=== PATIENT | male | born 1985 | race Caucasian/White ===

== ENCOUNTER → 2016-08-01 | Outpatient (CLI) | payer BC ==
--- NOTE | 2016-08-01 12:47 | DI ---
XR KNEE CMPT 4 OR MORE VWS,08/01/2016 9:19 AM: Clinical History: Right knee pain Previous Exam: None at this facility. Findings: 4 views of the right knee are obtained, and demonstrate postsurgical changes consistent with lag scre w fixation of the distal right metadiaphysis. Joint spaces are clear. The surrounding soft tissues are unremarkable. Impression: Postsurgical changes of the right knee consistent with lag screw fixation.
== END ==
LOC: ORTHO 09:52
PROVIDERS: ATTEND Physician Assistant
DX: M25.561 Pain in right knee (principal)
CPT/HCPCS: 73564

== ENCOUNTER → 2016-08-07 | Outpatient (CLI) | payer BC ==
--- NOTE | 2016-08-07 10:15 | DI ---
MRI RIGHT KNEE SCAN, 08/07/2016 9:17 AM: Clinical History: Right knee pain. Previous Exam: None at this facility. Technique: Axial, coronal, and sagittal PD and fat saturated PD. There is no soft tissue edema. There is no significant joint effusion. Extensive metallic artifacts a re present from stainless steel threaded screws that are in the femoral condyles. There is a subchond ral cyst in the lateral facet of the patella and this is associated with a grade 2 probably a grade 3 focus of chondromalacia of the lateral facet. The medial and lateral collateral ligaments and the an terior and posterior cruciate ligaments are normal. There is a longitudinal tear in the meniscal root of the posterior horn of the medial meniscus. Marked degenerative changes present in the body of the medial meniscus without evidence of a definite tear. The lateral meniscus is normal. The quadriceps and popliteus tendons and the tendons of the medial and lateral heads of the gastrocnemius muscle are normal. There is tendinosis of the proximal portion of the patellar tendon. The articular surfaces o f the medial and lateral compartments are normal. The articular surface of the medial facet of the pa tella is intact. Readin. Extensive scan artifacts are present from the stainless steel threaded screws in the distal femur . 2. There is a longitudinal tear of the meniscal root of the posterior horn of the medial meniscus. A grade 2 and probably a grade 3 focus of chondromalacia is present in the lateral facet of the patell a and this is associated with a subchondral cyst. The medial facet of the patella is normal. There is tendinosis of the proximal portion of the patellar tendon. 3. The MCL, LCL, ACL, PCL, lateral meniscus, and the quadriceps and popliteus tendons in the tendons of the medial and lateral heads of the gastrocnemius muscle are normal. The articular surfaces of th e medial and lateral compartments are intact.
== END ==
LOC: MRI 09:13
PROVIDERS: ATTEND Physician Assistant
DX: M25.561 Pain in right knee (principal); S83.241A Other tear of medial meniscus, current injury, right knee, initial encounter; M22.41 Chondromalacia patellae, right knee
CPT/HCPCS: 73721

== ENCOUNTER 2016-11-12 19:19 | Inpatient (IN) ==
[2016-11-12] MEDS ORDERED: Sodium Chloride 0.9% 1,000 ML PRIMARY IV ONE (19:39)
[2016-11-12] MEDS ORDERED: NORMAL SALINE 10 ML SYRINGE FLUSH IVP PRN ×2 (19:39→23:46)
[2016-11-12 19:46] LABS: BASOPHILS # (AUTO) 0.01 10*3/UL; BASOPHILS % (AUTO) 0.1 % (0-1); EOSINOPHILS # (AUTO) 0.01 10*3/UL; EOSINOPHILS % (AUTO) 0.1 % (0-8); Hematocrit [HCT] 42.8 % (42.0-52.0); Hemoglobin [HGB] 14.8 g/dL (14.0-18.0); MEAN CORPUSCULAR HEMOGLOBIN 28.4 PG (27-31); MEAN CORPUSCULAR HGB CONC 34.6 g/dL (33-37); MEAN PLATELET VOLUME 9.4 FL (7.4-12.2); MONOCYTES % (AUTO) 7.2 % (5-15); NEUTROPHILS % (AUTO) 85.2 % (50-80); RED BLOOD COUNT 5.22 10^6/uL (4.70-6.10)
--- NOTE | 2016-11-12 19:54 | EKG ---
[address] [address] Measurements Intervals [place] Rate: 73 P: 57 WA: 180 QRS: 72 QRSD: 110 T: 69 QT: 369 QTc: 395 Interpretive Statements SINUS RHYTHM INTERPRETATION BASED ON A DEFAULT AGE OF 40 YEARS No previous ECG available for comparison Electronically Signed On 11-13-16 09:14:10 MDT by Goran Nichole MD [email or web address]
[2016-11-12 19:56] LABS: BLOOD UREA NITROGEN 26 mg/dL (7-22); SERUM ALBUMIN 4.6 g/dL (3.5-4.8)
[2016-11-12 19:58] LABS: PLATELET MORPHOLOGY COMMENT NORMAL MORPHOLOGY (NORM); RBC MORPHOLOGY COMMENT NORMAL MORPHOLOGY (NORM); WBC MORPHOLOGY COMMENT NORMAL MORPHOLOGY (NORM)
--- NOTE | 2016-11-12 21:33 | DI ---
EXAM: CT Chest With Intravenous Contrast CLINICAL HISTORY: Trauma: TECHNIQUE: Axial computed tomography images of the chest with intravenous contrast. Coronal and sagittal reformats were obtained. COMPARISON: No relevant prior studies available. FINDINGS: Lungs: Mild atelectasis in the posterior left lower lobe. No consolidation. Pleural space: Moderate-sized left pneumothorax. No mediastinal shift. Heart: Unremarkable. No cardiomegaly. No significant pericardial effusion. Bones/joints: Segmented posterior left 8th through 12th rib fractures, some of which are mildly displaced. Soft tissues: Subcutaneous emphysema in the left chest wall. Bilateral gynecomastia. Vasculature: Unremarkable. No thoracic aortic aneurysm or dissection. Lymph nodes: Unremarkable. No enlarged lymph nodes. IMPRESSION: 1. Moderate-sized left pneumothorax. No mediastinal shift. 2. Segmented posterior left 8th through 12th rib fractures, some mildly displaced. 3. Please see CT abdomen and pelvis for findings below the diaphragm. [employer] 11/12/16 21:35 Call Doctor Regarding Trauma, called Dr. Aubrey Camejo on 11/12 21:34 (-06:00) 11/12/16 21:35 Call Doctor Regarding Pneumothorax, called Dr. Aubrey Camejo on 11/12 21:34 (-06:00)
--- NOTE | 2016-11-12 21:33 | DI ---
EXAM: CT Abdomen and Pelvis With Intravenous Contrast CLINICAL HISTORY: trauma: TECHNIQUE: Axial computed tomography images of the abdomen and pelvis with intravenous contrast. Coronal and sagittal reformats were obtained. COMPARISON: No relevant prior studies available. FINDINGS: Lower thorax: Please see CT chest for findings above the diaphragm. Left-sided rib fractures as described in CT chest. ABDOMEN: Liver: Small amount of perihepatic hematoma, which may represent redistribution of blood products from splenic injury. No gross hepatic parenchymal injury. Gallbladder and bile ducts: Unremarkable. No calcified stones. No ductal dilation. Pancreas: Unremarkable. No mass. No ductal dilation. Spleen: Approximately 6 cm vertically oriented laceration in the posterior aspect of the spleen (5/35). Moderate sized perisplenic hematoma. Findings compatible with A AST grade 3 splenic injury. No definite active contrast extravasation. Adrenals: Unremarkable. No mass. Kidneys and ureters: Unremarkable. No solid mass. No hydronephrosis. Stomach and bowel: Status post sleeve gastrectomy. No obstruction. Appendix: No findings to suggest acute appendicitis. PELVIS: Bladder: Unremarkable. Reproductive: Unremarkable as visualized. ABDOMEN and PELVIS: Intraperitoneal space: Small amount of hemoperitoneum in the left paracolic gutter and moderate amount in the pelvis. No free air. Bones/joints: No spinal, pelvic, or proximal femoral fracture. Soft tissues: Left flank subcutaneous contusion. Moderate amount of subcutaneous edema emphysema in the left flank, likely related to a left pneumothorax. Vasculature: Unremarkable. No abdominal aortic aneurysm. Lymph nodes: Unremarkable. No enlarged lymph nodes. IMPRESSION: 1. 6 cm splenic laceration and moderate sized perisplenic hematoma (AAST grade 3 splenic injury). No definite active contrast extravasation. 2. Small perihepatic hematoma, which may represent redistribution of blood products from splenic injury. No gross hepatic injury. 3. Moderate hemoperitoneum along the left paracolic gutter and pelvis. 4. Left flank subcutaneous contusion. [employer] 11/12/16 21:35 Call Doctor Regarding Trauma, called Dr. Aubrey Camejo on 11/12 21:34 (-06:00)
[2016-11-12] MEDS ORDERED: MIDAZOLAM 5 MG/1 ML IVP ONE (22:03)
[2016-11-12] MEDS ORDERED: fentaNYL Inj 100 MCG/2 ML VIAL IVP ONE (22:03)
[2016-11-12] MEDS ORDERED: ONDANSETRON 4 MG/2 ML VIAL IVP ONE (22:03)
[2016-11-12 22:35] LABS: LIPASE 217 IU/L (23-300)
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
[2016-11-12] MEDS ORDERED: PNEUMOCOCCAL 23 VACCINE 25 MCG/0.5 ML VIAL IM ONE (23:46)
[2016-11-12] MEDS ORDERED: ONDANSETRON 4 MG/2 ML VIAL IVP PRN (23:46)
[2016-11-12] MEDS ORDERED: LIDOCAINE W/ SODIUM BICARB 0.5 ML SYR SUBD PRN (23:46)
[2016-11-12] MEDS ORDERED: HYDROmorphone 2 MG/1 ML IVP PRN (23:46)
[2016-11-12] MEDS ORDERED: Lidocaine Inj 1% 20 ML ONE ×2 (23:52→23:55)
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
[2016-11-13 00:17] LABS: Hematocrit [HCT] 37.4 % (42.0-52.0); Hemoglobin [HGB] 12.7 g/dL (14.0-18.0)
[2016-11-13] MEDS: Ertapenem Inj 1 GM in Sodium Chloride 0.9% 100 ML IV SCH (00:41)
[2016-11-13] MEDS: Sodium Chloride 0.9% 1,000 ML PRIMARY IV SCH ×3 (00:41→17:00)
[2016-11-13] MEDS ORDERED: fentaNYL Inj 100 MCG/2 ML VIAL IVP ONE (02:11)
[2016-11-13 05:39] LABS: BASOPHILS # (AUTO) 0.02 10*3/UL; BASOPHILS % (AUTO) 0.3 % (0-1); EOSINOPHILS # (AUTO) 0.06 10*3/UL; EOSINOPHILS % (AUTO) 0.8 % (0-8); Hematocrit [HCT] 35.5 % (42.0-52.0); Hemoglobin [HGB] 11.9 g/dL (14.0-18.0); LYMPHOCYTES # (AUTO) 1.78 10*3/uL; MEAN CORPUSCULAR HGB CONC 33.5 g/dL (33-37); MEAN CORPUSCULAR VOLUME 83.5 FL (80-90); MEAN PLATELET VOLUME 9.7 FL (7.4-12.2); MONOCYTES # (AUTO) 0.81 10*3/UL (0.3-0.8); MONOCYTES % (AUTO) 11.4 % (5-15); NEUTROPHILS # (AUTO) 4.45 10*3/UL; NEUTROPHILS % (AUTO) 62.4 % (50-80); RED BLOOD COUNT 4.25 10^6/uL (4.70-6.10)
[2016-11-13 05:44] LABS: BILIRUBIN,URINE NEGATIVE (NEG); CLARITY,URINE CLEAR (CLEAR); COLOR,URINE YELLOW (Y); GLUCOSE, URINE (UA) NEGATIVE (NEG); NITRATE,URINE NEGATIVE (NEG); OCCULT BLOOD,URINE NEGATIVE (NEG); PH,URINE 5.5 (5.0-8.5); PROTEIN,URINE NEGATIVE (NEG); UROBILINOGEN,URINE 0.2 EU/dL (0.2)
[2016-11-13 05:47] LABS: URINE SAMPLE TYPE CLEAN CATCH URINE
[2016-11-13 05:52] LABS: PLATELET MORPHOLOGY COMMENT NORMAL MORPHOLOGY (NORM); RBC MORPHOLOGY COMMENT NORMAL MORPHOLOGY (NORM); WBC MORPHOLOGY COMMENT NORMAL MORPHOLOGY (NORM)
[2016-11-13 05:57] LABS: BLOOD UREA NITROGEN 19 mg/dL (7-22); BUN/CREATININE RATIO 23.75 (6-20); SERUM ALBUMIN 3.3 g/dL (3.5-4.8)
--- NOTE | 2016-11-13 08:37 | DI ---
AP CHEST X-RAY, 11/13/2016 7:00 AM : Clinical History: Rib fractures. Pneumothorax. Status post placement of a chest tube. Previous Exam: None at this facility. There is decreased subcutaneous emphysema in the left neck region. Heart size is normal. The chest tu be is inserted from the anterior approach and remains in a stable position. No definite pneumothorax is identified. The left thorax is slightly denser than the right thorax and there may be a small post erior pleural effusion. Reading: There is no pneumothorax although there may be a pleural effusion in the left thorax that is layering out posteriorly.
[2016-11-13] MEDS: Pantoprazole Inj 40 MG in Normal Saline Flush 10 ML IVP SCH (08:54)
[2016-11-13] MEDS ORDERED: Influenza 17-18 Vaccine (6mo+) Quad 60mcg/0.5ml PF IM ONE (09:15)
[2016-11-13] MEDS ORDERED: HAEMPH B POLYSAC CONJ-MENIN/PF 7.5 MCG/0.5 ML VIAL IM ONE (09:45)
[2016-11-13 10:27] LABS: Hematocrit [HCT] 36.6 % (42.0-52.0); Hemoglobin [HGB] 12.2 g/dL (14.0-18.0)
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
--- NOTE | 2016-11-13 11:58 | DI ---
AP CHEST X-RAY, 11/12/2016 10:14 PM : Clinical History: Pneumothorax. Status post placement of a chest tube. Indication of chest tube posit ion. Previous Exam: None at this facility. There is subcutaneous emphysema along the left side of the neck and the lateral aspect of the left up per chest. There are left seventh and eighth rib fractures laterally. Heart size is normal. No pneumo thorax is visualized. The chest tube is inserted from the anterior approach and crosses laterally and then posteriorly. The left thorax is slightly more dense than the right side and there may be a pleu ral effusion layering out posteriorly. Mediastinal structures are normal. There are no pulmonary nodu les. Readin. Status post placement of a left-sided chest tube from the anterior approach. There is no pneumoth orax. There may be some fluid layering out posteriorly in the left thorax. 2. There are rib fractures laterally involving the left seventh and eighth ribs with subcutaneous em physema.
[2016-11-13 18:12] LABS: Hematocrit [HCT] 34.6 % (42.0-52.0); Hemoglobin [HGB] 11.5 g/dL (14.0-18.0); MEAN CORPUSCULAR HEMOGLOBIN 28.1 PG (27-31); MEAN CORPUSCULAR HGB CONC 33.2 g/dL (33-37); MEAN CORPUSCULAR VOLUME 84.6 FL (80-90); MEAN PLATELET VOLUME 9.4 FL (7.4-12.2); RED BLOOD COUNT 4.09 10^6/uL (4.70-6.10)
[2016-11-13] MEDS: MORPHINE SULFATE 2 MG/1 ML IVP PRN (21:58)
[2016-11-13 23:58] LABS: Hematocrit [HCT] 33.6 % (42.0-52.0); Hemoglobin [HGB] 11.2 g/dL (14.0-18.0)
[2016-11-14] MEDS: Ertapenem Inj 1 GM in Sodium Chloride 0.9% 100 ML IV SCH ×2
[2016-11-14] MEDS: Sodium Chloride 0.9% 1,000 ML PRIMARY IV SCH ×4 (04:10→15:07)
[2016-11-14 05:24] LABS: BASOPHILS # (AUTO) 0.02 10*3/UL; BASOPHILS % (AUTO) 0.3 % (0-1); EOSINOPHILS # (AUTO) 0.14 10*3/UL; Hematocrit [HCT] 32.7 % (42.0-52.0); Hemoglobin [HGB] 10.7 g/dL (14.0-18.0); LYMPHOCYTES # (AUTO) 1.41 10*3/uL; MEAN CORPUSCULAR HEMOGLOBIN 27.7 PG (27-31); MEAN CORPUSCULAR HGB CONC 32.7 g/dL (33-37); MEAN CORPUSCULAR VOLUME 84.7 FL (80-90); MEAN PLATELET VOLUME 9.2 FL (7.4-12.2); MONOCYTES # (AUTO) 0.62 10*3/UL (0.3-0.8); MONOCYTES % (AUTO) 8.7 % (5-15); NEUTROPHILS # (AUTO) 4.93 10*3/UL; RED BLOOD COUNT 3.86 10^6/uL (4.70-6.10)
[2016-11-14 05:28] LABS: PLATELET MORPHOLOGY COMMENT NORMAL MORPHOLOGY (NORM); RBC MORPHOLOGY COMMENT NORMAL MORPHOLOGY (NORM); WBC MORPHOLOGY COMMENT NORMAL MORPHOLOGY (NORM)
[2016-11-14 05:38] LABS: BLOOD UREA NITROGEN 13 mg/dL (7-22); BUN/CREATININE RATIO 16.25 (6-20); SERUM ALBUMIN 3.2 g/dL (3.5-4.8)
[2016-11-14] MEDS: MORPHINE SULFATE 2 MG/1 ML IVP PRN ×2 (07:15→08:05)
--- NOTE | 2016-11-14 08:41 | DI ---
AP CHEST X-RAY, 11/14/2016 7:00 AM : Clinical History: Multiple left-sided rib fractures. Pneumothorax. Previous Exam: 11/13/2016. The subcutaneous emphysema is still present and unchanged. There is no pneumothorax. The chest tube r emains in the same position. There is no acute infiltrate. The density between the left and right tho rax is similar making a significant left pleural effusion less likely. Reading: There is no pneumothorax.
[2016-11-14] MEDS: Pantoprazole Inj 40 MG in Normal Saline Flush 10 ML IVP SCH (09:26)
[2016-11-14] MEDS ORDERED: HYDROcodone-APAP 5 MG -325 MG TABLET PO PRN (10:06)
--- NOTE | 2016-11-14 10:13 | DI ---
CT ABDOMEN SCAN WITH IV CONTRAST, 11/14/2016 7:37 AM : Clinical History: Splenic laceration. Previous Exam: 11/12/2016. Scans are performed from the lower lung bases through the liver and kidneys with IV contrast. 95 ml o f Isovue 300 was injected IV. Postcontrast scans were performed through the upper abdomen during the early arterial phase and through the abdomen and pelvis during the portal venous phase. There is prominent breast tissue bilaterally and this patient may have gynecomastia. There is subcuta neous gas present along the left lateral and posterior chest wall. There are fractures in 2 places in the left eighth through 10th ribs and there is a single fracture in the left 11th rib. A small left pleural effusion is present. There is no pneumothorax visualized in the lower lung field. The liver h as a normal appearance without evidence of a fracture. The gallbladder is grossly normal. Both adrena l glands and the pancreas are also normal. There is splenomegaly and there is a stellate lucency in t he posterior third of the spleen consistent with a fracture. This is in proximity to the rib fracture s. There is fluid surrounding the spleen and part of this is intraperitoneal but there may also be so me subcapsular fluid representing a subcapsular hematoma. The amount of fluid surrounding the spleen is no greater than on the previous study and may have actually decreased. The fluid surrounding the l iver has decreased since the prior exam. Both kidneys are normal in size, shape, position and contour . There is no hydronephrosis or hydroureter. No renal or ureteral calculi are present. There are no a bnormal retrocrural or periaortic nodes. READIN. There is splenomegaly with a comminuted fracture of the spleen in the posterior third in proximit y to the location of the rib fractures. There is fluid surrounding the spleen consistent with blood a nd this blood is partially intraperitoneal and probably also subcapsular. The amount of fluid is cert ainly no greater than on the prior study and may have actually decreased slightly. 2. There is fluid surrounding the liver representing blood and this has decreased since the prior ex am. 3. Small left pleural effusion without evidence of a pneumothorax. There are fractures in 2 places i nvolving the left 8th through 10th ribs and in a single location in the left 11th rib. 4. This patient may have gynecomastia. CT PELVIS SCAN WITH IV CONTRAST, 11/14/2016 7:37 AM: Clinical History: See above. Previous Exam: 11/12/2016. Scans are performed from just superior to the umbilicus to the symphysis pubis with IV contrast. This is the same bolus of contrast used for the CT scans of the abdomen. Scans through the lower abdomen and pelvis show no masses. There is fluid surrounding the cecum as we ll as in the pelvis and it is of high density consistent with blood. The amount that is present is si milar to the previous examination. There is no adenopathy. The appendix is normal. The small bowel, t erminal ileum, and ileocecal valve are normal. The colon is also normal. There are no hernias. The lo wer thoracic spine from T8-T12 show no acute fractures although there is anterior wedging of T11 and T12. There is no paravertebral widening and the wedging of T11 and T12 probably is developmental rath er than related to trauma. The lumbar vertebral bodies and posterior elements as well as the sacrum, pelvis, and both hips are normal. READIN. There is fluid in the pelvis and right gutter consistent with blood. The amount present is unchan ged from the previous exam. 2. The remainder of the examination is normal. There is wedging anteriorly of T11 and T12 without ev idence of fractures or of paravertebral soft tissue widening. These changes are probably developmenta l rather than posttraumatic.
[2016-11-14] MEDS ORDERED: LEVOTHYROXINE 100 MCG TABLET PO SCH (12:30)
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
[2016-11-14] MEDS ORDERED: NORMAL SALINE 10 ML SYRINGE FLUSH IVP PRN (13:01)
[2016-11-14] MEDS ORDERED: LIDOCAINE W/ SODIUM BICARB 0.5 ML SYR SUBD PRN (13:01)
[2016-11-14] MEDS ORDERED: ONDANSETRON 4 MG/2 ML VIAL IVP PRN (13:01)
[2016-11-14] MEDS ORDERED: MORPHINE SULFATE 2 MG/1 ML IVP PRN (13:01)
[2016-11-14] MEDS: LEVOTHYROXINE 100 MCG TABLET PO SCH (15:02)
[2016-11-14] MEDS: HYDROcodone-APAP 5 MG -325 MG TABLET PO PRN ×2 (15:02→21:09)
[2016-11-14 17:11] LABS: Hematocrit [HCT] 31.9 % (42.0-52.0); Hemoglobin [HGB] 10.5 g/dL (14.0-18.0)
[2016-11-15] MEDS ORDERED: Ertapenem Inj 1 GM in Sodium Chloride 0.9% 100 ML IV SCH ×2
[2016-11-15] MEDS: HYDROcodone-APAP 5 MG -325 MG TABLET PO PRN ×4 (01:30→21:30)
[2016-11-15] MEDS: LEVOTHYROXINE 100 MCG TABLET PO SCH (04:52)
[2016-11-15 05:43] LABS: BASOPHILS # (AUTO) 0.02 10*3/UL; BASOPHILS % (AUTO) 0.4 % (0-1); EOSINOPHILS # (AUTO) 0.14 10*3/UL; EOSINOPHILS % (AUTO) 2.9 % (0-8); Hematocrit [HCT] 30.8 % (42.0-52.0); LYMPHOCYTES # (AUTO) 1.45 10*3/uL; MEAN CORPUSCULAR HEMOGLOBIN 27.6 PG (27-31); MEAN CORPUSCULAR HGB CONC 32.5 g/dL (33-37); MEAN CORPUSCULAR VOLUME 85.1 FL (80-90); MEAN PLATELET VOLUME 9.7 FL (7.4-12.2); MONOCYTES % (AUTO) 10.3 % (5-15); NEUTROPHILS # (AUTO) 2.76 10*3/UL; NEUTROPHILS % (AUTO) 56.6 % (50-80); RED BLOOD COUNT 3.62 10^6/uL (4.70-6.10)
[2016-11-15 05:53] LABS: BLOOD UREA NITROGEN 10 mg/dL (7-22); BUN/CREATININE RATIO 14.28 (6-20)
[2016-11-15 05:58] LABS: PLATELET MORPHOLOGY COMMENT NORMAL MORPHOLOGY (NORM); RBC MORPHOLOGY COMMENT NORMAL MORPHOLOGY (NORM); WBC MORPHOLOGY COMMENT NORMAL MORPHOLOGY (NORM)
[2016-11-15] MEDS ORDERED: PANTOPRAZOLE 40 MG TABLET PO SCH (07:00)
[2016-11-15] MEDS: PANTOPRAZOLE 40 MG TABLET PO SCH (07:31)
--- NOTE | 2016-11-15 08:36 | DI ---
AP CHEST X-RAY, 11/15/2016 7:00 AM : Clinical History: Multiple rib fractures. Pneumothorax. Previous Exam: 11/14/2016. There is no left-sided pneumothorax. Minimal subcutaneous emphysema persists. The chest tube is in un changed position. The patient has developed very mild left lower lobe atelectasis. Heart size is norm al. Reading: There is no pneumothorax. Minimal left lower lobe atelectasis has developed.
[2016-11-15] MEDS: Sodium Chloride 0.9% 1,000 ML PRIMARY IV SCH (08:54)
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
[2016-11-16] MEDS: LEVOTHYROXINE 100 MCG TABLET PO SCH (04:53)
[2016-11-16] MEDS: HYDROcodone-APAP 5 MG -325 MG TABLET PO PRN (06:39)
[2016-11-16] MEDS: PANTOPRAZOLE 40 MG TABLET PO SCH (06:39)
[2016-11-16 07:04] LABS: BASOPHILS # (AUTO) 0.03 10*3/UL; BASOPHILS % (AUTO) 0.5 % (0-1); EOSINOPHILS # (AUTO) 0.14 10*3/UL; EOSINOPHILS % (AUTO) 2.6 % (0-8); Hemoglobin [HGB] 11.2 g/dL (14.0-18.0); LYMPHOCYTES # (AUTO) 1.34 10*3/uL; MEAN CORPUSCULAR HEMOGLOBIN 27.6 PG (27-31); MEAN CORPUSCULAR HGB CONC 32.9 g/dL (33-37); MEAN CORPUSCULAR VOLUME 83.7 FL (80-90); MEAN PLATELET VOLUME 9.1 FL (7.4-12.2); MONOCYTES # (AUTO) 0.53 10*3/UL (0.3-0.8); MONOCYTES % (AUTO) 9.7 % (5-15); NEUTROPHILS # (AUTO) 3.41 10*3/UL; NEUTROPHILS % (AUTO) 62.5 % (50-80); RED BLOOD COUNT 4.06 10^6/uL (4.70-6.10)
[2016-11-16 07:06] LABS: PLATELET MORPHOLOGY COMMENT NORMAL MORPHOLOGY (NORM); RBC MORPHOLOGY COMMENT NORMAL MORPHOLOGY (NORM); WBC MORPHOLOGY COMMENT NORMAL MORPHOLOGY (NORM)
--- NOTE | 2016-11-16 08:30 | DI ---
PA /LATERAL CHEST X-RAY, 11/16/2016 7:00 AM : Clinical History: Multiple rib fractures. Pneumothorax. Status post removal of the left chest tube. Previous Exam: 11/15/2016. Subcutaneous emphysema has diminished. There is a very small apical pneumothorax, less than 1%. A sma ll pleural effusion is present in the posterior sulcus and since there is no air-fluid level, there i s no extension of the pneumothorax inferiorly. The heart size is normal. Readin. There is a very small, probably less than 1%, left apical pneumothorax that probably is loculated . 2. Small left pleural effusion.
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
[2016-11-16 09:28] VITALS: BP 125/72; RESP 20; TEMP 98.2; O2SAT 93
== END 2016-11-16 09:40 | disposition home or self-care (01) | DRG 965 ==
LOC: ER 19:19 → ICU 23:27 → MED/SURG 11-14 12:23
PROVIDERS: ADMIT Surgery; ATTEND Surgery